=== PATIENT | male | born 1990 | race Caucasian/White ===

== ENCOUNTER 2019-03-24 18:31 | Emergency (ER) | payer OTHER ==
[~2019-03-24] VITALS: Ht 170.2 cm; Wt 74.8 kg
[2019-03-24 18:57] LABS: ABSOLUTE LYMPHOCYTES 1.4 thou/uL (0.8-5.3); ABSOLUTE MONOCYTES 0.7 thou/uL (0.0-1.2); ABSOLUTE NEUTROPHILS 3.8 thou/uL (1.6-8.1); BASOPHILS 0.5 %; EOSINOPHILS 0.7 %; HEMATOCRIT 44.5 % (42.0-52.0); HEMOGLOBIN 15.6 gm/dL (14.0-18.0); LYMPHOCYTES 23.9 %; MCH 31.6 pg (26.0-34.0); MCHC 35.1 g/dL (28.0-37.0); MCV 90.1 fL (80.0-100.0); MPV 7.7 fl. (7.2-11.1); NUCLEATED RBCS 0 /100WBC; PLATELET COUNT* 243 thou/uL (150-400); POLYS 63.9 %; RBC 4.94 mil/uL (4.50-6.00); RDW-CV 13.6 % (10.5-14.5)
[2019-03-24 19:05] LABS: CALCIUM 9.1 mg/dL (8.5-10.1); POTASSIUM 3.5 mmol/L (3.5-5.1)
[2019-03-24 19:10] LABS: ALBUMIN 3.9 g/dL (3.4-5.0); TOTAL BILIRUBIN 1.2 mg/dL (<0.1-1.0); TOTAL PROTEIN 7.2 g/dL (6.4-8.2)
[2019-03-24 19:45] LABS: MAGNESIUM 1.8 mg/dL (1.8-2.4)
[2019-03-24 19:48] VITALS: BP 124/86
== END 2019-03-24 19:48 | disposition left against medical advice (07) ==
LOC: M.ERS 18:31
PROVIDERS: Emergency Medicine; Personal Emergency Response Attendant
DX: R56.9 Unspecified convulsions (principal)